=== PATIENT | male | born 1975 | race Two or more races ===

== ENCOUNTER 2025-05-02 10:50 | Day surgery (SDC) | payer MEDICAID ==
[2025-04-28 15:21] LABS: Hematocrit 43.3 % (41.0-53.0); Hemoglobin 15.5 g/dL (13.5-17.5); Mean Corpuscular Hemoglobin 32.2 pg (28.0-32.0); Mean Corpuscular Volume 90.1 fL (80.0-100.0); Nucleated Red Blood Cells % 0.1 %
[2025-04-28 15:22] LABS: Urine Protein, UAD TRACE (Negative)
[2025-04-28 15:40] LABS: INR 1.08 (0.9-1.15); Partial Thromboplastin Time 29.2 SEC (24.5-34.5); Prothrombin Time 11.4 sec (9.3-11.8)
[2025-04-28 16:16] LABS: Anion Gap 5 (5-15); BUN/Creatinine Ratio 8.7 (10.0-20.0); Calcium 10.0 mg/dL (8.7-10.4); Carbon Dioxide 29 mmol/L (20-31); Chloride 104 mmol/L (98-107); Glucose 82 mg/dL (74-106); Potassium 4.8 mmol/L (3.5-5.1); Sodium 138 mmol/L (136-145)
[2025-04-28 16:17] LABS: Alanine Aminotransferase 42 U/L (7-40); Albumin 4.9 g/dL (3.2-4.8); Alkaline Phosphatase 129 U/L (46-116); Bilirubin, Total 0.6 mg/dL (0.2-1.0); Blood Urea Nitrogen 9 mg/dL (9-23); Total Protein 8.9 g/dL (5.7-8.2)
[~2025-05-02] VITALS: Ht 172.7 cm; Wt 104.3 kg
[~2025-05-02 10:50] MED LIST: LISI20TA56 PO; METH10SO PO
[2025-05-02] MEDS ORDERED: METOCLOPRAMIDE HCL 5MG/ml INJ 2ml VIAL ONE (12:10)
[2025-05-02] MEDS ORDERED: ONDANSETRON HCL 4 MG/2 ML VIAL ONE (12:10)
[2025-05-02] MEDS ORDERED: LIDOCAINE 2% (LOCAL ANESTH.) PF 5ml SDV ONE (12:10)
[2025-05-02] MEDS ORDERED: PROPOFOL 10 MG/ML 20 ML IV ONE (12:11)
[2025-05-02 12:19] VITALS: PULSE 62; RESP 15; TEMP 98.9; O2SAT 98
--- NOTE | 2025-05-02 12:29 | DVHOP2 ---
Operative Report DATE OF OPERATION: 05/02/25 PROCEDURE: Upper Endoscopy with biopsy. PREOPERATIVE INDICATION: The patient is a 50 -year-old male undergoing endoscopy for abdominal pain with history of well-compensated cirrhosis POSTOPERATIVE DIAGNOSES: 1. Itik-iv-nnrhhthk gastritis and gastropathy with flecks of old blood involving the body antrum and the cardia of the stomach from which biopsies were obtained 2. 0.5 cm sliding-type hiatal hernia with slightly irregular squamocolumnar junction minimal grade a erosive esophagitis PROCEDURE PERFORMED BY: Shelli Gamble GI NURSE: Bekah SCOPE: Olympus videoendoscope. ASA CLASS: 3. PREOPERATIVE MEDICATIONS: Mac sedation, Cale howard PROCEDURE IN DETAIL: After obtaining an informed consent, the patient was placed on left lateral decubitus position. The patient was then sedated with the above medications. A bite block was placed between his teeth. The endoscope was then passed through the oropharynx, into the esophagus, and through the stomach and pylorus up to the second and third part of the duodenum. The endoscope was then withdrawn. The 2nd and 3rd part of the duodenal and the duodenal bulb were normal. Duodenal biopsies were obtained. There was good bile drainage The pre-pyloric area antrum and body showed mild gastritis gastropathy with flecks of old blood. Gastric biopsies were obtained On retroflexion the fundus cardia and angularis showed gastropathy with hyperemia erythema and some flecks of old blood. The endoscope was then withdrawn into the distal esophagus where there was a 0.5 cm sliding-type hiatal hernia with grade a erosive esophagitis GE junction biopsies were obtained. The remaining distal and proximal esophagus and oropharynx were unremarkable. There were no varices The patient tolerated the procedure well without difficulty. COMPLICATIONS : None SPECIMENS: Duodenal biopsies Gastric biopsies GE junction biopsies DISPOSITION: Stable D/C to home PLAN: 1. Await for biopsy result 2. Will place pt on Protonix 40 mg bid 3. Lifestyle and dietary modifications for GERD 4. Carafate 1 g p.o. twice a day 5. DC aspirin NSAIDs smoking alcohol 6. Outpatient follow up with me in 4-6 weeks to review results and discuss further management SHELLI GAMBLE MD May 02, 2025 12:29
[2025-05-02 12:30] VITALS: PULSE 70; RESP 17; O2SAT 97
[2025-05-02 13:04] VITALS: BP 121/79; PULSE 61; RESP 16; O2SAT 95
== END 2025-05-02 13:30 | disposition home or self-care (01) ==
LOC: SUR 10:50
PROVIDERS: ATTEND Internal Medicine Gastroenterology
DX: K74.60 Unspecified cirrhosis of liver (principal); K21.9 Gastro-esophageal reflux disease without esophagitis; K22.10 Ulcer of esophagus without bleeding; K29.70 Gastritis, unspecified, without bleeding; K31.9 Disease of stomach and duodenum, unspecified; K44.9 Diaphragmatic hernia without obstruction or gangrene; F17.200 Nicotine dependence, unspecified, uncomplicated; Z79.899 Other long term (current) drug therapy
CPT/HCPCS: 36415; 43239; 80053; 81001; 82105; 85025; 85610; 85730; 88305; 88342; J2003; J2405; J2704; J2765

== ENCOUNTER → 2025-07-17 | Outpatient (CLI) | payer MEDICAID ==
[2025-07-17 15:29] LABS: Hematocrit 40.7 % (41.0-53.0); Hemoglobin 14.3 g/dL (13.5-17.5); Mean Corpuscular Hemoglobin 32.0 pg (28.0-32.0); Mean Corpuscular Volume 90.9 fL (80.0-100.0); Nucleated Red Blood Cells % 0.1 %
[2025-07-17 15:36] LABS: INR 1.08 (0.9-1.15); Partial Thromboplastin Time 29.5 SEC (24.5-34.5); Prothrombin Time 11.4 sec (9.3-11.8)
[2025-07-17 15:57] LABS: Albumin 4.2 g/dL (3.2-4.8); Anion Gap 8 (5-15); BUN/Creatinine Ratio 12.1 (10.0-20.0); Bilirubin, Total 0.7 mg/dL (0.2-1.0); Blood Urea Nitrogen 11 mg/dL (9-23); Calcium 9.2 mg/dL (8.7-10.4); Carbon Dioxide 29 mmol/L (20-31); Chloride 101 mmol/L (98-107); Potassium 3.6 mmol/L (3.5-5.1); Sodium 138 mmol/L (136-145); Total Protein 7.9 g/dL (5.7-8.2)
[2025-07-17 16:00] LABS: Alanine Aminotransferase 44 U/L (7-40); Alkaline Phosphatase 127 U/L (46-116); Glucose 67 mg/dL (74-106)
[2025-07-18 10:07] LABS: Hepatitis B Surface Antigen Negative (Negative)
[2025-07-18 10:32] LABS: Hepatitis C Antibody Negative (Negative)
== END | disposition home or self-care (01) ==
LOC: LAB 14:54
PROVIDERS: ATTEND Internal Medicine Gastroenterology
DX: K29.00 Acute gastritis without bleeding (principal); R94.5 Abnormal results of liver function studies
CPT/HCPCS: 36415; 80053; 82140; 85025; 85610; 85730; 86803; 87340